=== PATIENT | female | born 1990 | race Asian ===

== ENCOUNTER 2024-12-19 09:42 | Outpatient (AMB) | payer OTHER, SELFPAY ==
[2024-12-19 09:44] VITALS: BP 110/90; PULSE 91; TEMP 36.3; O2SAT 99; BMI 29.7
--- NOTE | 2024-12-19 09:44 | MHC.PC.OV ---
Vital Signs 12/19/24 09:44 12/19/24 10:07 12/19/24 10:08 Height 5 ft 1 in Weight 157 lb 6 oz BMI 29.7 BP 110/90 H 112/82 Blood Pressure Location Lt brachial Lt brachial Lt brachial Position Sitting Sitting Pulse 91 Pulse Source Pulse Oximeter Temp 97.3 F Temp Source Temporal Artery Scan Pulse Oximetry (%) 99 Oxygen Delivery Method Room Air Intake Visit Reasons: establish care Accompanied by: Spouse Allergies No Known Allergies Allergy (Verified 12/19/24 10:08) Tobacco use date assessed: 12/19/24 Dental Screening Dental Screen Date: 12/19/24 Did you have a dental visit in the last 12 months?: Yes Did you have a dental problem in the last 6 months where you did not have access to dental care?: No Was dental information given to patient?: Patient has dentist HPI establish care HPI Details Previous PCP: Yudith Hernández but mostly went to the [facility] Last visit:Over one and half year Last PE: same Specialist: safety instruction police officer, fluoroscope operator, in the past OBGYN: needs a referral Past medical history: DM, left arm pain for few months that radiates in the front of chest and sometime in the back in the areas. , feeling burning in right breast sometimes, hair is falling out. Reports that it has stopped before, now it started again. Mastalgia around the time of her jennifer-menses, but random at times. A lump felt at the 12 oclock on bilateral breasts, Medications: metformin 500mg once a day Family HX: Problem: The patient is a 34-year-old female presenting to establish care with concerns of left arm pain, a burning sensation in right breast intermittently, at times around menses, but random as well, and hair loss. The patient reports pain in her left arm, which she describes as moving from the front to the back of the shoulder area, though it is mostly located in the arm itself, at the lateral bicep region. Additionally, she experiences a burning sensation under one of her breasts. She denies any nipple discharge. The patient has also noticed hair loss, stating she feels like she is going bald. Her last A1c test was one and a half years ago, with a result of 6.3%. Reports intermittent shortness of breath primarily going upstairs, denies chest pain, denies dizziness or heart palpitation Denies abdominal pain or change in bowel habits Denies any urinary symptoms [facility] Medical History (Updated 12/19/24 @ 13:29 by JUDITH Owusu) PCOS (polycystic ovarian syndrome) Diabetes mellitus Family History Father No problems noted. Mother No problems noted. 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 1. Little interest or pleasure in doing things: not at all 2. Feeling down, depressed, or hopeless: not at all 3. Trouble falling or staying asleep, or sleeping too much: not at all 4. Feeling tired or having little energy: several days 5. Poor appetite or overeating: several days 6. Feeling bad about yourself - or that you are a failure or have let yourself or your family down: not at all 7. Trouble concentrating on things, such as reading the newspaper or watching television: not at all 8. Moving or speaking so slowly that other people could have noticed. Or the opposite - being so fidgety or restless that you have been moving around a lot more than usual: not at all 9. Thoughts that you would be better off or of hurting yourself in some way: not at all Total score: 2 Source: Developed by Drs. Mik Cleveland, Mayra Parnell, Amari Rock and colleagues, with an educational erin from [employer]. Thrive Questionnaire Date Thrive assessed: 12/19/24 I am a: Patient What is your living situation today?: I have a steady place to live Within the past 12 months, did the food you bought not last and you didn't have the money to get more?: Never true Within the past 12 months, did you worry whether your food would run out before you got money to buy more?: Never true Do you have trouble paying for medicines?: No Do you have trouble getting transportation to medical appointments?: No Do you have trouble paying your heating and electricity bill?: No Do you have trouble taking care of your child, family member or friend?: No Do you have trouble with day-to-day activities such as bathing, preparing meals, shopping, managing finances, etc.?: No Are you currently unemployed and looking for a job?: No Are you interested in more education?: No Please select the resources that you would like help with: None Currently or been in a relationship where the following occur: No concerns reported THRIVE Score: 0 AUDIT C Alcohol Use Questionnaire (AUDIT-C) 1. How often do you have a drink containing alcohol?: Never Total Score: 0 FIOR-7 AMB Questionnaire FIOR-7 Date FIOR - 7 assessed: 12/19/24 Feeling nervous, anxious, or on edge: 0 = Not at all Not being able to stop or control worryin = Not at all Worrying too much about different things: 1 = Several days Trouble relaxin = Not at all Being so restless that it is hard to sit still: 0 = Not at all Becoming easily annoyed or irritable: 0 = Not at all Feeling afraid as if something awful might happen: 0 = Not at all Total FIOR-7 score (0-4 normal; 5-9 mild; 10-14 moderate; 15-21 severe): 1 Source: Developed by Drs. Mik Cleveland, Mayra Parnell, Amari Rock and colleagues, with an educational erin from [employer]. Review of Systems Const Denies headache(s) and Reports other (hair loss) Eyes Denies loss of vision ENT Denies vertigo, Denies dizziness, Denies headache(s) and Denies sore throat Card Denies chest pain, Denies leg edema, Denies lightheadedness and Reports dyspnea on exertion (intermittent, sometimes with going upstairs) Resp Denies cough, Denies hemoptysis, Reports dyspnea on exertion (intermittent, sometimes with going upstairs) and Denies wheezing GI Denies abdominal pain, Denies melena, Reports constipation, Denies diarrhea and Denies vomiting Denies urinary frequency, Denies dysuria and Denies urinary urgency Musc Denies arthralgias, Denies joint swelling, Denies numbness, Denies tingling and Reports other (Left arm pain that radiates down arm, chest, and back) Skin/Breast Reports breast pain (Burning sensation in right breast) Neuro Denies Abnormal speech present, Denies behavioral changes, Denies vertigo, Denies dizziness, Denies headache(s), Denies loss of vision, Denies memory loss, Denies numbness and Denies tingling Psych Denies anxiety, Denies behavioral changes, Denies depression, Denies memory loss and Denies panic attacks Carlin/Lymph Denies easy bleeding and Denies easy bruising Aller/Immun Denies wheezing Physical exam (Primary Care) Vital Signs: Last Vital Signs Temp 97.3 F 12/19/24 09:44 Pulse 91 12/19/24 09:44 BP 112/82 12/19/24 10:07 Pulse Ox 99 12/19/24 09:44 Oxygen Delivery Method Room Air 12/19/24 09:44 BMI result Body Mass Index 29.7 Tobacco/Smoking Status: Tobacco use Status Tobacco use date assessed 12/19/24 12/19/24 09:54 Patient Tobacco Use Status Never used Tobacco 12/19/24 09:54 Tobacco use type Cigarette 12/19/24 09:54 e-Cigarette/Vaping Use Never Used 12/19/24 09:54 PHQ-9: PHQ-9 Score PHQ-9: Total score 2 12/19/24 10:38 Thrive Assessment: Date of Thrive Assessment Date Thrive assessed 12/19/24 12/19/24 09:54 Currently or been in a relationship where the following occur: No concerns reported Const General: healthy appearing, no acute distress, alert and awake Nutritional Appearance: well nourished Orientation/consciousness: oriented to person, oriented to place and oriented to time HENMT Ears: TM's normal bilaterally General nose exam: Normal nasal mucous membranes and turbinates present Eyes Conjunctivae: conjunctivae normal Sclerae: sclerae normal Pupils: Equal, round and reactive pupils present Neck Neck: Yes no lymphadenopathy and Yes no JVD Thyroid: Thyroid normal Carotids: no bruits Chest Breast/axilla inspection: abnormal inspection of the breast (Lump at 12:00 bilaterally) Resp Effort & Inspection: normal respiratory effort and not tachypneic Auscultation: no crackles, no rales, no rhonchi and no wheezes Cardio Rate: regular rate Rhythm: regular rhythm Heart sounds: no murmurs and normal S1 and S2 GI Palpation (GI): Soft to palpation, nontender, no hepatomegaly and no splenomegaly Auscultation: normal bowel sounds General: Yes no CVA tenderness Back/Spine/Pelvis Back: no CVA tenderness Skin General skin exam: no rashes or lesions noted and dry skin Neuro General: oriented to person, oriented to place and oriented to time Cranial nerves: Yes Equal, round and reactive pupils present Speech: No Abnormal speech present Gait exam (Neuro): Normal gait present Motor exam (neuro): no tremor noted Extrem Right upper extremity: full ROM Left upper extremity: full ROM Right lower extremity: full ROM; no edema Left lower extremity: full ROM; no edema Psych Mental Status: mental status grossly normal Speech and movement: Normal speech and movement present Affect: normal affect Attitude: cooperative Thought process: Normal thought process present Results AMB Hemoglobin A1c AMB Hemoglobin A1c 6.3 % Last Edit by YESENIA Georges on 12/19/24 10:39 Results Reviewed Results Reviewed: Laboratory Last Values Hgb A1c (Clinic) 6.3 % (4.0-6.0) H 12/19/24 10:38 Coding Level of Care Code New Pt Level 4 (05209) Diagnoses Mastalgia N64.4 PCOS (polycystic ovarian syndrome) E28.2 Hair loss L65.9 Type 2 diabetes mellitus with other specified complication, without long-term current use of insulin E11.69 Diabetes mellitus type: type 2 Diabetes mellitus exterminator insulin use: without exterminator use Diabetes mellitus complication status: with other specified complication Left arm pain M79.602 Mass of breast, unspecified laterality N63.0 Laterality: unspecified laterality Constipation, unspecified constipation type K59.00 Constipation type: unspecified constipation type Time Spent (min) 39 Assessment & Plan Assessment & Plan (1) Mastalgia: Code(s): N64.4 - Mastodynia Category: Medical Plan: The patient reports a burning sensation in the right breast without any nipple discharge. The patient was instructed on how to perform a monthly self-breast exam. On exam bilateral lump at the 12 o clock noted. A referral will be sent to DESIGN VERIFICATION ENGINEER for further evaluation and an order for bilateral ultrasound. (2) PCOS (polycystic ovarian syndrome): Code(s): E28.2 - Polycystic ovarian syndrome Category: Medical Plan: Reports PCOS will labs to assess her condition. Continue metformin 500 mg daily (3) Hair loss: Code(s): L65.9 - Nonscarring hair loss, unspecified Category: Medical Plan: The patient reports significant hair loss. This will be assessed with initial lab work, including a CBC and different hormones. (4) Diabetes mellitus: Code(s): E11.9 - Type 2 diabetes mellitus without complications Category: Medical Qualifiers: Diabetes mellitus type: type 2 Diabetes mellitus exterminator insulin use: without snf use Diabetes mellitus complication status: with other specified complication Qualified Code(s): E11.69 - Type 2 diabetes mellitus with other specified complication Plan: Patient reports that she takes her metformin on and off. A1c in office was 6.3% indicating a well-controlled diabetes. Reinforced low sugar/carbohydrate diet. Continue metformin 500 mg daily. (5) Left arm pain: Code(s): M79.602 - Pain in left arm Category: Medical Plan: The patient's left arm pain was evaluated. Physical examination of the shoulder and arm did not reproduce the pain with palpation. The plan is to monitor symptoms, and she will be further evaluated during her follow up exam. (6) Breast lump: Code(s): N63.0 - Unspecified lump in unspecified breast Category: Medical Qualifiers: Laterality: unspecified laterality Qualified Code(s): N63.0 - Unspecified lump in unspecified breast Plan: The patient c/o right breast mastalgia. Lump in bilateral breasts at the 12 o clock region felt on palpation. Bilateral breast ultrasound ordered. (7) Constipation: Code(s): K59.00 - Constipation, unspecified Category: Medical Qualifiers: Constipation type: unspecified constipation type Qualified Code(s): K59.00 - Constipation, unspecified Plan: Reports longstanding constipation. Patient reports the only be drinking about 1-2 16 oz bottles of water per day. Increase fiber in diet (fruits/vegetables 4-5 servings daily) Increase fluid intake and decrease caffeine/energy drinks (may cause mild dehydration) Encouraged regular exercise (e.g., biking, walking, running) Orders: Orders AMB Hemoglobin A1c Today Z13.9 - Encounter for screening, unspecified Vitamin D 25-OH Total Today Z00.00 - Encounter for general adult medical examination without abnormal findings TSH reflex Free T4 Today Z00.00 - Encounter for general adult medical examination without abnormal findings Zinc Today L65.9 - Nonscarring hair loss, unspecified Estradiol Ultra Sensitive Today E28.2 - Polycystic ovarian syndrome, L65.9 - Nonscarring hair loss, unspecified DHEA Sulfate Today E28.2 - Polycystic ovarian syndrome, L65.9 - Nonscarring hair loss, unspecified MYRON Reflex Titer and Pattern Today E28.2 - Polycystic ovarian syndrome, L65.9 - Nonscarring hair loss, unspecified Complete Blood Count Auto Diff Today Z00.00 - Encounter for general adult medical examination without abnormal findings Comprehensive [place]. Panel Fast Today Z00.00 - Encounter for general adult medical examination without abnormal findings Lipid Panel Today Z00.00 - Encounter for general adult medical examination without abnormal findings UA CC w/rflx Micro + Cult Today Z00.00 - Encounter for general adult medical examination without abnormal findings Vitamin B12 and Folate Today L65.9 - Nonscarring hair loss, unspecified Ferritin Today L65.9 - Nonscarring hair loss, unspecified Testosterone, Free/Total Today E28.2 - Polycystic ovarian syndrome, L65.9 - Nonscarring hair loss, unspecified US breast RT complete Today N64.4 - Mastodynia US breast LT complete Today N63.0 - Unspecified lump in unspecified breast Referrals DESIGN VERIFICATION ENGINEER Referral Z12.4 - Encounter for screening for malignant neoplasm of cervix Medications: New metformin 500 mg PO ONCE 90 tabs 3RF
[2024-12-19 10:07] VITALS: BP 112/82
--- OUTSIDE RECORDS SUMMARY | 2024-12-19 11:15 | XMS_ITS | Clinical Summary ---
Author Organization [employer] Address [address] [place] [address] Care Team Providers Care Fleet Mechanic Name Role Phone Kenneth House Primary Care Provider [phone] Allergies No known active allergies Medications No known medications Active Problems Problem Noted Date Diagnosed Date Postcoital bleeding 11/12/2020 Irregular menstrual cycle 11/12/2020 Family History Medical History Relation Name Comments Hypertension Brother 1 Autism Daughter Hypertension Father Stroke Father Parkinsonism Mother Diabetes Other Hypertension Other Down syndrome Sister 2 Relation Name Status Comments Brother 1 Alive Brother 2 Alive Brother 3 Alive Daughter Alive Father (Age 40) Mother (Age 73) Other Sister 1 Alive Sister 2 (Age 40) half siste r Social History Tobacco Use Types Packs/Day Years Used Date Smoking Tobacco: Never Smokeless Tobacco: Never Alcohol Use Standard Drinks/Week Comments Never 0 (1 standard drink = 0.6 oz pur e alcohol) Comments No Sex and Gender Information Value Date Recorded Sex Assigned at Not on file Legal Sex Female 2:39 PM EST Gender Identity Not on file Sexual Orientation Not on file Last Filed Vital Signs Vital Sign Reading Time Taken Comments Blood Pressure 140/72 11/12/2020 11:16 AM EDT Pulse - - Temperature - - Respiratory Rate - - Oxygen Saturation - - Inhaled Oxygen Concentration - - Weight 70.3 kg (155 lb) 11/12/2020 11:16 AM EDT Height - - Body Mass Index - - Plan of Treatment Health Maintenance Due Date Last Done Comments Annual Physical Exam 02/05/2006 Tdap and Td Vaccines Adult 02/05/2007 HPV/Cotest 02/05/2018 Cervical Cancer Screening 05/07/2021 Pap Smear 05/07/2021 05/07/2018 COVID-19 Vaccine (2024-2 6 season) 2024 Influenza Vaccine (#1) 2024 HIB Vaccines Aged Out No longer eligi ble based on patient's age to complete this topic HPV Vaccines (No Doses Required) Completed Hepatitis A Vaccines Aged Out No long er eligible based on patient's age to complete this topic IPV Vaccines Aged Out No longer eligi ble based on patient's age to complete this topic Meningococcal Vaccine Aged Out No tracey mary eligible based on patient's age to complete this topic Pneumococcal Vaccine: Peds ( 0 to 5 Yrs) and At-Risk Pts (6 to 49 Yrs) Aged Out No lo nger eligible based on patient's age to complete this topic RSV <20 Months Aged Out No longer smooth gible based on patient's age to complete this topic Procedures Procedure Name Priority Date/Time Associated Diagnosis Comments LIQUID-BASED PAP SMEAR, SCREENING Routine 05/07/2018 12:00 AM EDT from Last 3 Months or Most Recently Relevant to Health Maintenance Results * Liquid-Based Pap Smear, Screening (05/07/2018 12:00 AM EDT) Swab (Endocervical/Cer vical) us Historical Provider MD LAB CYTOLOGY ORDERABLES F inal Result [facility] from Last 3 Months or Most Recently Relevant to Health Maintenance Care Teams Fleet Mechanic Relationship Specialty Start Date End Date Kenneth House PA [address] [place] [address] PCP - General Internal Medicine 10/19/20
== END 2024-12-19 10:40 | disposition home or self-care (01) ==
DX: N64.4 Mastodynia (principal); E28.2 Polycystic ovarian syndrome; L65.9 Nonscarring hair loss, unspecified; E11.69 Type 2 diabetes mellitus with other specified complication; M79.602 Pain in left arm; N63.0 Unspecified lump in unspecified breast; K59.00 Constipation, unspecified; Z13.9 Encounter for screening, unspecified

== ENCOUNTER → 2024-12-19 09:42 | Outpatient (BNVA) | payer OTHER, SELFPAY | DX: M79.602 Pain in left arm (principal); N64.4 Mastodynia; L65.9 Nonscarring hair loss, unspecified; E28.2 Polycystic ovarian syndrome; E11.69 Type 2 diabetes mellitus with other specified complication; K59.00 Constipation, unspecified | CPT/HCPCS: 83036; 99202 ==

== ENCOUNTER 2025-02-03 10:38 | Outpatient (REF) | payer OTHER, SELFPAY ==
--- OUTSIDE RECORDS SUMMARY | 2025-02-03 12:07 | XMS_ITS | Clinical Summary ---
Author Organization [employer] Address [address] [place] [address] Care Team Providers Care Cut Off Machine Operator Name Role Phone Kenneth House Primary Care Provider [phone] Allergies No known active allergies Medications No [...] MD LAB CYTOLOGY ORDERABLES F inal Result [facility] from Last 3 Months or Most Recently Relevant to Health Maintenance Care Teams Cut Off Machine Operator Relationship Specialty Start Date End Date Kenneth House PA [address] [place] [address] PCP - General Internal Medicine 10/19/20
[2025-02-03 13:58] LABS: Hematocrit 39.0 % (37.0-47.0); Hemoglobin 12.5 g/dl (12.0-16.0); Imm Gran Abs Auto 0.01 X10*3/uL (0.00-0.03); Imm Gran Pct Auto 0.1 % (0.0-0.4); Lymphocytes Absolute Auto 2.9 X10*3/uL (1.2-4.9); MANUAL DIFF FLAG NO; Mean Corpuscular HGB Conc 32.1 g/dl (31.0-35.0); Mean Corpuscular Hemoglobin 25.8 pg (27.0-33.0); Mean Corpuscular Volume 80.6 fL (80.0-98.0); NRBC Abs Auto 0.000 X10*3/uL (0.0-0.012); NRBC Pct Auto 0.0 /100WBC (0.0-0.2); Platelet Count 370 X10*3/uL (160-400); Red Blood Count 4.84 X10*6/uL (4.20-5.50); White Blood Count 6.9 X10*3/uL (4.8-10.8)
[2025-02-03 14:12] LABS: Appearance Urine Clear; Glucose Urine UA Negative (Negative); PH 5.0 (5.0-9.0); Specific Gravity - Urine 1.020 (1.005-1.025); UMIC TRIGGER UACC YES
[2025-02-03 14:55] LABS: Alanine Aminotransferase 15 U/L (0-31); Albumin Level 4.4 g/dL (3.5-5.0); Alkaline Phosphatase 98 U/L (39-117); Anion Gap 11 (12-20); Aspartate Amino Transferase 27 U/L (5-31); Blood Urea Nitrogen 9 mg/dL (9-16); Calcium 9.4 mg/dL (8.4-10.2); Carbon Dioxide 25 mmol/L (22-29); Chloride 106 mmol/L (96-108); Cholesterol 236 mg/dL (<200); Estimated Glomerular Filt Rate > 60; HDL Cholesterol 44 mg/dL (>40); Potassium 4.0 mmol/L (3.3-5.1); Sodium 138 mmol/L (135-145); Total Protein 7.9 g/dL (6.5-8.0); Triglycerides 244 mg/dL (<150)
[2025-02-03 14:57] LABS: Other Crystals Urine Present
[2025-02-03 15:06] LABS: Folate 2.8 ng/mL (> or = 4.0); Vitamin B12 < 148 pg/mL (200-900)
[2025-02-03 15:18] LABS: Ferritin 14 ng/mL (10-122)
== END 2025-02-03 10:39 | disposition home or self-care (01) ==
LOC: HO.HMGCLDS 10:38
DX: Z00.00 Encounter for general adult medical examination without abnormal findings (principal); L65.9 Nonscarring hair loss, unspecified; E28.2 Polycystic ovarian syndrome
CPT/HCPCS: 36415; 80053; 80061; 81001; 81003; 82306; 82607; 82627; 82670; 82728; 82746; 84402; 84403; 84443; 84630; 85025; 86038